=== PATIENT | male | born 1970 | race Caucasian/White ===

== ENCOUNTER 2019-06-27 01:56 | Inpatient (IN) | payer BC ==
[2019-06-27] MEDS ORDERED: Heparin 25,000 units/D5W 500 ML IV SCH (02:15)
[2019-06-27 02:30] LABS: INR-International Normal Ratio 1.2; Prothrombin Time 14.9 SEC (12.0-14.7)
[2019-06-27 02:41] LABS: Hemoglobin 14.1 g/dL (14.0-18.0); Mean Corpuscular HGB CONC 34.4 g/dL (32.0-36.0); Mean Corpuscular Hemoglobin 32.4 pg (27.0-31.0); Mean Corpuscular Volume 94.1 fL (78.0-98.0); RBC Distribution Width 10.8 % (11.5-14.5); Red Blood Cell (RBC) Count 4.35 mill/uL (4.70-6.10)
[2019-06-27] MEDS ORDERED: Heparin 25,000 units/D5W 500 ML ONE (02:41)
[2019-06-27 02:42] LABS: #Eosinphils 0.2 thou/uL (0.0-0.7); #Lymphocytes 1.6 thou/uL (1.20-3.40); #Monocytes 0.5 thou/uL (0.11-0.59); #Neutrophils 2.5 thou/uL (1.40-6.50); %Basophils 0.9 % (0.0-1.0); %Eosinophils 5.1 % (0.0-10.0); %Lymphocytes 33.7 % (21.0-51.0); %Monocytes 9.4 % (0.0-10.0); %Neutrophils 50.9 % (42.0-75.0); Mean Platelet Volume 7.9 fL (7.4-10.4); Platelet Count 108 thou/uL (130-400); Platelet Morphology Comment Appears Decreased; White Blood Cell (WBC) Count 4.8 thou/uL (4.8-10.8)
[2019-06-27 02:44] LABS: ALT (SGPT) 21 U/L (8-55); AST (SGOT) 18 U/L (5-34); Albumin 3.9 g/dL (3.5-5.0); Alkaline Phosphatase 47 U/L (40-110); Anion Gap 8 mmol/L (10-20); BUN (Urea Nitrogen) 10 mg/dL (8.9-20.6); Bilirubin, Total 0.9 mg/dL (0.2-1.2); Calc. Creatinine Clearance 0 mL/min (70-130); Calcium 9.1 mg/dL (7.8-10.44); Carbon Dioxide 31 mmol/L (22-29); Chloride 106 mmol/L (98-107); Estimated GFR-MDRD Greater than 90; Globulin 2.4 g/dL (2.4-3.5); Glucose 96 mg/dL (70-105); Potassium 3.6 mmol/L (3.5-5.1); Protein, Total 6.3 g/dL (6.0-8.3); Sodium 141 mmol/L (136-145)
[2019-06-27 05:58] VITALS: BMI 32.4
[2019-06-27] MEDS ORDERED: Ondansetron PF 4 MG/2 ML Vial IVP PRN (07:06)
[2019-06-27] MEDS ORDERED: Acetaminophen 325 MG TAB PO PRN (07:06)
[2019-06-27] MEDS ORDERED: Zolpidem Tartrate 5 MG TAB PO PRN (07:06)
[2019-06-27] MEDS ORDERED: hydrALAZINE 20 MG/ML VIAL SLOW IVP PRN (07:06)
[2019-06-27] MEDS ORDERED: Diabetic Tussin 200 MG/10 ML UDCUP PO PRN (07:06)
[2019-06-27] MEDS ORDERED: Loperamide HCl 2 MG CAP PO PRN (07:06)
[2019-06-27] MEDS ORDERED: Cepastat Lozenges 1 LOZ PO PRN (07:06)
[2019-06-27] MEDS ORDERED: HYDROcodone/Acetaminophen 5/325 mg Tablet PO PRN (07:06)
[2019-06-27] MEDS ORDERED: Ondansetron ODT 4 MG TAB PO PRN (07:06)
[2019-06-27] MEDS ORDERED: Senokot S 8.6-50 MG TAB PO PRN (07:06)
[2019-06-27] MEDS ORDERED: Artificial Tears 18 DROP/0.9 ML EA EYE PRN (07:06)
[2019-06-27] MEDS ORDERED: Loratadine 10 MG TAB PO PRN (07:06)
[2019-06-27] MEDS ORDERED: Bisacodyl 10 MG SUPP PR PRN (07:06)
[2019-06-27] MEDS ORDERED: Sodium Chloride 0.65% Nasal 44 ML BOT EA NARE PRN (07:06)
--- NOTE | 2019-06-27 08:51 | CT ---
PRELIMINARY REPORT/[facility]/AFTER HOURS PROCEDURE CT ABDOMEN AND PELVIS WITH INTRAVENOUS CONTRAST: CLINICAL HISTORY: [id number] presents to the ED from [facility] for evaluation of portal vein thrombosis. Pt reports he pre sented to his PCP's office with c/o right flank pain yesterday and had a CT scan with concern for kid xenia stones. Pt reports he was called by his PCP today and was told to go to the ER for further evalua tion. Pt reports today the pain began to radiate to his RUQ. TECHNIQUE: Axial computed tomography images of the abdomen and pelvis with intravenous contrast. CONTRAST: With Isovue-370 100 mL. COMPARISON: None provided. FINDINGS: LUNG BASES: No basilar airspace consolidation or pleural effusion. LIVER: Unremarkable. GALLBLADDER AND BILE DUCTS: Status post cholecystectomy. No biliary duct dilation. PANCREAS: Unremarkable. SPLEEN: Unremarkable. ADRENAL GLANDS: Unremarkable. KIDNEYS, URETERS, AND BLADDER: Unremarkable. No hydronephrosis or nephrolithiasis. No ureteral or dixie dder calculi. STOMACH AND BOWEL: Small hiatal hernia with postoperative appearance of sleeve gastrectomy. No eviden ce of bowel obstruction. There is mild colonic diverticulosis without evidence of acute diverticuliti s. APPENDIX: Normal appendix. PERITONEUM: No free fluid. No free air. Pelvic phleboliths. LYMPH NODES: No lymphadenopathy. REPRODUCTIVE: Unremarkable as visualized. VASCULATURE: No aortic aneurysm. BONES: No fracture or suspicious osseous abnormality. ABDOMINAL WALL AND SOFT TISSUES: Unremarkable. IMPRESSION: No acute intra-abdominal or pelvic abnormality. ELECTRONICALLY SIGNED BY: Keven Zhu M.D. Jun 27, 2019 2:48:22 AM E BUSINESS PROJECT MANAGER This report is intended for review by the ordering physician only, in accordance of law. If you recei ve this report in error, please call [facility] at [phone]. FINAL REPORT CT ABDOMEN AND PELVIS WITH IV CONTRAST: I agree with the preliminary report given by Dr. Keven Zhu of [facility]. CODE QA POS: [facility]
[2019-06-27] MEDS ORDERED: Famotidine 20 MG TAB PO SCH (09:00)
[2019-06-27 10:59] VITALS: BP 103/65; TEMP 98
[2019-06-27] MEDS ORDERED: Iopamidol-370 76% 500 ML 1 ML ONE (11:32)
--- NOTE | 2019-06-27 12:18 | HP ---
PRIMARY CARE PHYSICIAN: [facility] Call admission. REASON FOR ADMISSION: Suspected portal vein thrombosis. HISTORY OF PRESENT ILLNESS: A 48-year-old male, who was complaining of right upper quadrant abdominal discomfort, and the patient was evaluated at [facility], where he had a noncontrast CT abdomen, and the patient was suspected for portal vein thrombosis. Before this, the patient went to see his primary care physician for this abdominal pain, who ordered CT scan, and after that, he was sent to emergency room for concern of portal vein thrombosis. Initially, his primary care physician did CAT scan for concern of kidney stone, but there was no kidney stone found. Here in our emergency room, the patient had a CT of the abdomen and pelvis with contrast, and there was no mention of portal vein thrombosis. The patient was started on heparin drip, and the patient is being admitted for further evaluation. The patient has history of gastric sleeve surgery, and he had pancreatitis afterward. He had cholecystectomy done, but he does not have any recent or chronic abdominal infection or abdominal process. When I saw at that time, the patient was asymptomatic. REVIEW OF SYSTEMS: CONSTITUTIONAL: Negative for weight loss or gain, ability to conduct usual activities. SKIN: Negative for rash, itching. EYES: Negative for double vision, pain. ENT/MOUTH: Negative for nose bleeding, neck stiffness, pain, tenderness. CARDIOVASCULAR: Negative for palpitations, dyspnea on exertion, orthopnea. RESPIRATORY: Negative for shortness of breath, wheezing, cough, hemoptysis, fever or night sweats. GASTROINTESTINAL: Negative for poor appetite, abdominal pain, heartburn, nausea, vomiting, constipation, or diarrhea. GENITOURINARY: Negative for urgency, frequency, dysuria, nocturia. MUSCULOSKELETAL: Negative for pain, swelling. NEUROLOGIC/PSYCHIATRIC: Negative for anxiety, depression. ALLERGY/IMMUNOLOGIC: Negative for skin rash, bleeding tendency. Please see my HPI for pertinent positive and negative. All other review of systems reviewed and negative except as mentioned in HPI. PAST MEDICAL HISTORY: Gastroesophageal reflux disease and history of nephrolithiasis. PAST SURGICAL HISTORY: Cholecystectomy and gastric sleeve surgery. PAST PSYCHIATRIC HISTORY: Reviewed and negative. SOCIAL HISTORY: The patient is , lives at home with his . He drinks alcohol occasionally. He denies any smoking. He denies any other illicit drug abuse. FAMILY HISTORY: No family history of blood clot disorder. No family history of coronary artery disease, stroke, or cancer. ALLERGIES: NO KNOWN DRUG ALLERGIES. CURRENT HOME MEDICATION: Nexium 20 mg daily. EMERGENCY ROOM COURSE: The patient was started on heparin drip. PHYSICAL EXAMINATION: VITAL SIGNS: On arrival, blood pressure 126/86, pulse 70, respiratory rate 20, temperature 98.0, saturation 96% on room air, and weight 99.7 kg. GENERAL: The patient is currently alert, awake, in no obvious acute distress. HEENT: Head, normocephalic and atraumatic. Eyes; pupils round, reactive to light. Extraocular muscle intact. ENT, oropharynx within normal limits. Moist mucous membranes. No oral lesion. No pharyngeal erythema. No exudate. NECK: Supple. No JVD. No thyromegaly. No carotid bruit. No jugular venous distention. LUNGS: Clear to auscultation without any rhonchi or rales. CARDIAC: S1 and S2. Regular without any murmur. No gallop. No rub. ABDOMEN: Soft, bowel sounds present. Nontender. Nondistended. No organomegaly. No mass. No peritoneal sign. EXTREMITIES: No edema. Good distal pulsation. NEUROLOGIC: Nonfocal examination. SIGNIFICANT LABORATORY DATA: CBC; WBC 4.8, hemoglobin 14.1, and platelets 108. INR 1.2. PTT 113, PT 14.9. BMP, sodium 141, potassium 3.6, chloride 106, carbon dioxide 31, anion gap 8, BUN 10, creatinine 0.78, glucose 96, calcium 9.1. LFT; AST 18, ALT 21, alkaline phosphatase 47, and albumin 3.9. ASSESSMENT AND PLAN: 1. Suspected portal vein thrombosis. The patient had a noncontrast CT scan by primary care physician, which showed portal vein thrombosis suspected, but as contrast CT scan is unremarkable, at this point I doubt the patient has any portal vein thrombosis. We are consulting Gastroenterology for their opinion. At this point, we will hold on heparin therapy. 2. Thrombocytopenia. We will repeat CBC tomorrow. 3. Gastroesophageal reflux disease. We will continue with Protonix 40 mg p.o. daily. 4. Deep venous thrombosis prophylaxis, SCD boots. Gastrointestinal prophylaxis, the patient is already on Protonix therapy. CODE STATUS: The patient is full code. The patient does not have any surrogate decision maker. DISPOSITION PLAN: Likely within 24 hours. Plan of care discussed with the patient in detail. Job ID: [id number]
--- NOTE | 2019-06-27 17:43 | CON ---
DATE OF CONSULTATION: 06/27/2019 REASON FOR CONSULTATION: Right upper quadrant abdominal pain, concern for acute portal vein thrombosis. CONSULTING PROVIDER: Dr. Caesar Carrero. HISTORY OF PRESENT ILLNESS: The patient is a 48-year-old male with past medical history of GERD, nephrolithiasis, obesity status post gastric sleeve surgery, and pancreatitis, presenting with complaints of right upper quadrant/right back pain. He states that he was in his usual state of health until when he had the fairly acute onset of right flank pain, characterized as a sharp/twisting type sensation, would radiate to the right upper quadrant, was intermittent, but would last for hours in duration, and reached a severity of 5 to 6/10. He denied any clear exacerbating factors, but stated that this pain would sometimes get better with eating, possibly fasting states, and the administration of pain medications (specifically Toradol). This pain was not associated with any other significant findings, but given the increased severity of his pain, it prompted him to seek healthcare assistance at the [facility], where he was evaluated. During the course of his evaluation, the patient had a CT scan that showed possible dilation of the superior mesenteric vein as well as dilation of the portal vein concerning for the presence of acute portal vein thrombosis. In light of no active inpatient GI consultation capabilities, the patient was subsequently transferred to [facility] ER for further evaluation, where he underwent repeat CT scan, but with contrast at this time for further evaluation of the portal system. 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 He did experience some increased lower back pain that slowly resolved prior to the onset of this right back pain). PAST MEDICAL HISTORY: As per HPI. PAST SURGICAL HISTORY: Cholecystectomy and gastric sleeve surgery. FAMILY HISTORY: Denies any GI malignancies or coagulopathies. SOCIAL HISTORY: Denies any tobacco or illicit drug use. Does drink approximately 1 to 2 alcoholic beverages per week. OUTPATIENT MEDICATIONS: 1. Nexium 20 mg daily. 2. Sucralfate three times daily. ALLERGIES: NO KNOWN DRUG ALLERGIES. PHYSICAL EXAMINATION: VITAL SIGNS: Temperature 98, pulse 67, blood pressure 103/65, respiratory rate 17, saturating 97% on room air. GENERAL: The patient was lying in bed, in no acute distress. Alert and oriented x4. HEENT: Normocephalic and atraumatic. No scleral icterus or JVD noted. CARDIOVASCULAR: Regular rate and rhythm with no discernible murmurs, gallops, or rubs. RESPIRATORY: Clear to auscultation bilaterally with no discernible wheezes or rales. BACK: Significant tenderness to palpation above the posterior ribs, located on the right hemithorax at approximately 9th to 10th rib and extending into the right chest. ABDOMEN: Normoactive bowel sounds. Soft, nontender, nondistended. EXTREMITIES: No cyanosis, clubbing, or edema. LABORATORY DATA: CBC with a white blood cell count of 4.8, hemoglobin 14.1, hematocrit 40.9, platelets 108. INR 1.2. Chemistry with a sodium of 141, potassium 3.6, chloride 106, CO2 of 31, BUN 10, creatinine 0.78, glucose 96. AST 18, ALT 21, alkaline phosphatase 47, total bilirubin 0.9, albumin 3.9. IMAGING DATA: CT of the abdomen and pelvis obtained on June 27, 2019, with a contrasted exam, did not show any evidence of portal vein thrombosis, nor did it show any dilation of the portal system or superior mesenteric vein. Essentially, there was no evidence of acute intraabdominal or pelvic abnormalities. ASSESSMENT AND PLAN: The patient is a 48-year-old male with past medical history of gastroesophageal reflux disease, nephrolithiasis, obesity status post gastric sleeve surgery, and pancreatitis resulting from his gastric sleeve surgery, presenting with right mid back pain consistent with costochondritis. 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 However, within 48 hours after this increased exertion, he has experienced increased right back/chest pain, characterized as a sharp/twisting type sensation, with significant tenderness to palpation along the ribs on that side (recreating his pain). Given the history of increased physical exertion prior to the onset of pain and the exquisite tenderness to palpation on physical exam, this exam seems more likely to be inline with costochondritis or even possibly a rib fracture, although that was not seen on any imaging thus far. Recommendations: 1. We would recommend limited movements at least for the time being to facilitate healing. 2. Could recommend hot compresses for alleviation of his pain. 3. Pain control per primary team. Abnormal GI imaging: When the patient was evaluated in the [facility], he was noted to have a CT scan showing the presence of dilation of the portal and superior mesenteric veins, concerning for the presence of portal vein thrombosis. However, repeat imaging obtained here with contrasted exam shows no such abnormalities and good flow throughout this entire region. With a lack of history of significant liver disease or history of coagulopathy, again the likelihood of a portal vein thrombosis is extremely low at this time. Recommendations: 1. We would stop the heparin drip, given lack of findings of portal vein thrombosis. 2. See recommendations as above for costochondritis. Given the non-GI origin of his pain, we will sign off. Please call with any additional questions. Job ID: [id number]
--- NOTE | 2019-06-28 12:39 | DIS ---
DATE OF ADMISSION: 06/27/2019 DATE OF DISCHARGE: 06/27/2019 PRIMARY CARE PHYSICIAN: [facility] Call admission. DISCHARGE DISPOSITION: Home. PRIMARY DISCHARGE DIAGNOSIS: Ruled out portal vein thrombosis. SECONDARY DISCHARGE DIAGNOSIS: Gastroesophageal reflux disease. PRIMARY PROCEDURE/OPERATION: None. RADIOLOGICAL INVESTIGATION: Abdomen and pelvis CT scan was unremarkable. SIGNIFICANT LABORATORY DATA: WBC 4.8, hemoglobin 14.1, platelet 108. INR 1.2. Sodium 141, creatinine 0.78. LFTs normal. DISCHARGE MEDICATION: Nexium 20 mg p.o. daily. CONTRAINDICATION: None. CODE STATUS: Full code. INPATIENT TRAINING PROFESSIONAL: Dr. Fernando Baumann, GI was consulted. TEST RESULTS PENDING ON DISCHARGE: None. ALLERGIES: NO KNOWN DRUG ALLERGIES. DISCHARGE PLAN: Posthospital, the patient will follow up with primary care physician. HOSPITAL COURSE: A 48-year-old male who presented to the primary care physician office for right upper quadrant abdominal pain, which was consistent with costochondritis, but the patient had CT abdomen and pelvis without contrast that suspected portal vein thrombosis and that is why primary care physician referred him to go to ER and subsequently, the patient had CT abdomen and pelvis with contrast study that did not show any portal vein thrombosis. The patient was admitted to the hospital, got expert opinion from Gastroenterology and they recommended that this patient does not have any portal vein thrombosis, but his pain which was predominantly right lower ribcage pain, which was related with costochondritis and that is why we advised him to treat locally with local pain medication. The patient is overall stable and the patient was discharged on the day of admission. The patient was admitted on June 27, 2019 at 4:00 a.m. and discharged on June 27, 2019 at 2 p.m. Job ID: [id number]
== END 2019-06-27 14:41 | disposition home or self-care (01) | DRG 206 ==
LOC: ERS 01:56 → T4-B 04:13
PROVIDERS: ADMIT Internal Medicine; ATTEND Internal Medicine
DX: M94.0 Chondrocostal junction syndrome [Tietze] (principal); K21.9 Gastro-esophageal reflux disease without esophagitis; Z90.49 Acquired absence of other specified parts of digestive tract; D69.6 Thrombocytopenia, unspecified; Z98.84 Bariatric surgery status
CPT/HCPCS: 36415; 74177; 80053; 85025; 85610; 85730; J1644; Q9967

== ENCOUNTER 2024-03-19 11:04 | Outpatient (CLI) | payer BC | END 2024-03-19 11:05 | disposition home or self-care (01) | LOC: RAD 11:04 | PROVIDERS: ATTEND Internal Medicine Critical Care Medicine | DX: R06.00 Dyspnea, unspecified (principal) | CPT/HCPCS: 71046 ==